=== PATIENT | female | born 1975 | race Caucasian/White ===

== ENCOUNTER → 2018-08-21 | Outpatient (CLI) | payer BC ==
[2018-08-22 18:17] LABS: Influenza A Negative (NEGATIVE); Influenza B Negative (NEGATIVE)
== END | disposition home or self-care (01) ==
LOC: LAB SHORT 16:13 → LAB 16:13
PROVIDERS: Nurse Practitioner Family
DX: R05 Cough (principal)
CPT/HCPCS: 87804

== ENCOUNTER 2023-09-21 08:34 | Day surgery (SDC) | payer BC ==
[~2023-09-21] VITALS: Ht 165.1 cm; Wt 123.6 kg
[~2023-09-21 08:34] MED LIST: CULTURELLE PO; GLUCOSAMINE 1500 PO; KRILL OIL 1,001 EAC1 PO; LABE200 PO; Lactated Ringer's 1,000 ML IV ONE; METF500C PO; OMEPRAZOLE MAGN20 MG PO; Prinivil10 MG PO; TUMERIC PO; [UNRECOGNIZED DRUG - OTHER] PO
[2023-09-21] MEDS ORDERED: MULVITA (09:22)
[2023-09-21] MEDS ORDERED: Lactated Ringer's 1,000 ML IV ONE (09:57)
[2023-09-21] MEDS ORDERED: FentaNYL Citrate 50 MCG/ML 2 ML Injection ONE (10:20)
[2023-09-21] MEDS ORDERED: Midazolam HCL 1 MG/ML 5MLVIAL ONE (10:20)
[2023-09-21] MEDS ORDERED: propofoL 50 ML IV ONE (10:21)
[2023-09-21 11:24] VITALS: BP 155/80
== END 2023-09-21 11:23 | disposition home or self-care (01) ==
LOC: ORSCSDS 08:34
PROVIDERS: Internal Medicine Gastroenterology
PROC: 0DBN8ZX Excision of Sigmoid Colon, Via Natural or Artificial Opening Endoscopic, Diagnostic (ICD-10-PCS; principal; 2023-09-21 10:30)
DX: Z12.11 Encounter for screening for malignant neoplasm of colon (principal); K63.5 Polyp of colon; I10 Essential (primary) hypertension; E11.9 Type 2 diabetes mellitus without complications; E28.2 Polycystic ovarian syndrome; E66.01 Morbid (severe) obesity due to excess calories; Z68.42 Body mass index [BMI] 45.0-49.9, adult; Z79.84 Long term (current) use of oral hypoglycemic drugs; Z79.899 Other long term (current) drug therapy
CPT/HCPCS: 82947; 88305; J2250; J2704; J3010; J7120